=== PATIENT | female | born 1995 | race Caucasian/White ===

== ENCOUNTER 2017-12-07 19:07 | Emergency (ER) | payer OTHER ==
--- NOTE | 2017-12-07 19:16 | PDOC ---
History of Present Illness - General History Source: Patient Exam Limitations: No Limitations - History of Present Illness Initial Comments: 12/07/17 20:11 The patient is a 22 year old female with no significant past medical history who presents to the ED with injury to her left hand. She reports trying to catch a broken piece of glass that was falling and subsequently cut the base of her left ring finger. The patient states that since then she has been unable to flex or bend her ring finger but denies any pain to it. She denies any numbness or tingling to the injury. The patient denies any recent illness, fevers or chills. <Mely Chery - Last Filed: 12/07/17 20:11> <Keven Ulloa - Last Filed: 12/08/17 06:56> - General Chief Complaint: Laceration Stated Complaint: LH 4TH FINGER LAC Past History <Mely Chery - Last Filed: 12/07/17 20:11> - Surgical History Cholecystectomy: Yes - Suicide/Smoking/Psychosocial Hx Smoking History: Never smoked Have you smoked in the past 12 months: No Hx Alcohol Use: No Drug/Substance Use Hx: No Substance Use Type: None <Keven Ulloa - Last Filed: 12/08/17 06:56> - Past Medical History Allergies/Adverse Reactions: Allergies Allergy/AdvReac Type Severity Reaction Status Date / Time No Known Allergies Allergy Verified 07/09/15 12:32 Home Medications: Ambulatory Orders l-Norgest/E.estradiol-E.estrad [Ashlyna 0.15-0.03-0.01 mg Tab] 1 each PO DAILY 12/07/17 Review of Systems - Review of Systems Able to Perform ROS?: Yes Comments:: 12/07/17 20:11 GENERAL/CONSTITUTIONAL: No fever or chills. No weakness. HEAD, EYES, EARS, NOSE AND THROAT: No change in vision. No ear pain or discharge. No sore throat. GASTROINTESTINAL: No nausea, vomiting, diarrhea or constipation. GENITOURINARY: No dysuria, frequency, or change in urination. CARDIOVASCULAR: No chest pain or shortness of breath. RESPIRATORY: No cough, wheezing, or hemoptysis. MUSCULOSKELETAL: Present: inability to bend ring finger No joint or muscle swelling or pain. No neck or back pain. SKIN: Present: cut on left ring finger No rash NEUROLOGIC: No headache, vertigo, loss of consciousness, or change in strength/ sensation. ENDOCRINE: No increased thirst. No abnormal weight change. HEMATOLOGIC/LYMPHATIC: No anemia, easy bleeding, or history of blood clots. ALLERGIC/IMMUNOLOGIC: No hives or skin allergy. All Other Systems: Reviewed and Negative <Mely Chery - Last Filed: 12/07/17 20:11> *Physical Exam - Vital Signs Last Vital Signs Temp Pulse Resp BP Pulse Ox 98.1 F 79 16 150/83 100 12/07/17 19:09 12/07/17 19:09 12/07/17 19:09 12/07/17 19:09 12/07/17 19:09 - Physical Exam Comments: 12/07/17 20:13 GENERAL: Awake, alert, and fully oriented, in no acute distress HEAD: No signs of trauma EXTREMITIES: Normal range of motion, no edema. No clubbing or cyanosis. No cords, erythema, or tenderness NEUROLOGICAL: Normal speech, cranial nerves intact, negative pronator drift, 5/ 5 strength in all 4 extremities, normal sensation to light touch in all 4 extremities, normal gait, normal reflexes and tone SKIN:1 cm horizontal laceration at base of ring finger, no flexor functioning distal to laceration, sensation intact Warm, Dry, normal turgor, no rashes or lesions noted. <Mely Chery - Last Filed: 12/07/17 20:11> Procedures - Laceration/Wound Repair Left Proximal 2nd digit Wound Length: to 2.5 cm Wound Explored: clean, no foreign body present Wound's Depth, Shape: superficial Irrigated w/ Saline: Yes Betadine Prep: No Anesthesia: 2% Lidocaine Amount of Anesthetic (ccs): 1 Wound Repaired With: Sutures Suture Size/Type: 5:0, nylon Sterile Dressing Applied: Yes Splint Applied: Yes <Mely Chery - Last Filed: 12/07/17 20:11> Medical Decision Making - Medical Decision Making 12/08/17 06:54 laceration with flexor tendon dysfunction. lac repaired emergently referred to hand surgery for mgmt of tendon repair <Keven Ulloa - Last Filed: 12/08/17 06:56> *DC/Admit/Observation/Transfer - Attestations Scribe Attestion: 12/07/17 20:18 Documentation prepared by Mely Siracusa, acting as medical records assistant for Keven Ulloa MD. <Mely Chery - Last Filed: 12/07/17 20:11> <Keven Ulloa - Last Filed: 12/08/17 06:56> Diagnosis at time of Disposition: Injury of flexor tendon of left hand Qualifiers: Encounter type: initial encounter Qualified Code(s): S66.802A - Unspecified injury of other specified muscles, fascia and tendons at wrist and hand level, left hand, initial encounter - Discharge Dispostion Disposition: HOME Condition at time of disposition: Stable - Referrals Referrals: Owen Pride MD [Staff Physician] - Call tomorrow - Patient Instructions Printed Discharge Instructions: DI for Laceration Repair - Post Discharge Activity
[2017-12-07 19:19] VITALS: BP 150/83; PULSE 79; TEMP 98.1; BMI 29.9
[2017-12-07] MEDS ORDERED: LIDOCAINE HCL 2% (20ML MULTI-DOSE VIAL) NR ONE (19:21)
== END 2017-12-07 19:50 | disposition home or self-care (01) ==
LOC: FER 19:07
PROC: 0HQGXZZ Repair Left Hand Skin, External Approach (ICD-10-PCS; principal; 2017-12-07)
DX: S66.802A Unspecified injury of other specified muscles, fascia and tendons at wrist and hand level, left hand, initial encounter (principal); S61.215A Laceration without foreign body of left ring finger without damage to nail, initial encounter; W25.XXXA Contact with sharp glass, initial encounter; Y93.89 Activity, other specified; Y92.9 Unspecified place or not applicable
CPT/HCPCS: 99281-25

== ENCOUNTER 2019-03-26 15:23 | Emergency (ER) | payer OTHER ==
[2019-03-26 15:52] VITALS: BP 155/90; PULSE 84; TEMP 98.3; BMI 34.9
--- NOTE | 2019-03-26 17:13 | PDOC ---
Documentation entered by Tammy Barcenas SCRIBE, acting as scribe for Brock Hinkle MD. Brock Hinkle MD: This documentation has been prepared by the Narinder schumacher Collisia, SCRIBE, under my direction and personally reviewed by me in its entirety. I confirm that the documentation accurately reflects all work, treatment, procedures, and medical decision making performed by me. History of Present Illness - General Chief Complaint: Palpitations Stated Complaint: CRAMP OF CHEST AND BACK Time Seen by Provider: 03/26/19 15:25 History Source: Patient Exam Limitations: No Limitations - History of Present Illness Initial Comments: 03/26/19 16:48 The patient is a 23 year old female with no significant past medical history who presents to the emergency department with heart palpitations since earlier today. The patient states that she was at home at rest when she began to experience a sudden onset of heart palpitations. The patient states that she thought she was having an [place]. he reports some associated back pain as well as feeling as if her sternum was about to crack. The patient endorses a heart rate of 92bpm (normally 62bpm). She states that she had 2 episodes of this palpitations 1 at 12pm associated with lightheadedness and the second at 3 pm. She states that her episodes lasted about 20 minutes. 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 She denies any shortness of breath, chills, or weakness. She denies any drug, alcohol use or smoking. The patient endorses a family history of stroke (cousin at age 30), hypertension(mother), bypass (father), the sudden of brother at age 17. She denies any fever chills, nausea, vomiting, diarrhea, constipation or urinary symptoms. The patient denies any other complaints. Past History - Past Medical History Allergies/Adverse Reactions: Allergies Allergy/AdvReac Type Severity Reaction Status Date / Time No Known Allergies Allergy Verified 03/26/19 15:25 Home Medications: Ambulatory Orders l-Norgest/E.estradiol-E.estrad [Ashlyna 0.15-0.03-0.01 mg Tab] 1 each PO DAILY 12/07/17 COPD: No - Surgical History Cholecystectomy: Yes - Immunization History Immunization Up to Date: Yes - Suicide/Smoking/Psychosocial Hx Smoking History: Never smoked Have you smoked in the past 12 months: No Hx Alcohol Use: No Drug/Substance Use Hx: No Substance Use Type: None Review of Systems - Review of Systems Able to Perform ROS?: Yes Comments:: 03/26/19 17:11 GENERAL/CONSTITUTIONAL: No fever or chills. No weakness. HEAD, EYES, EARS, NOSE AND THROAT: No change in vision. No ear pain or discharge. No sore throat. CARDIOVASCULAR: (+)heart palpitations. No shortness of breath. RESPIRATORY: No cough, wheezing, or hemoptysis. GASTROINTESTINAL: No nausea, vomiting, diarrhea or constipation. GENITOURINARY: No dysuria, frequency, or change in urination. MUSCULOSKELETAL: No joint or muscle swelling or pain. No neck or back pain. SKIN: No rash NEUROLOGIC: (+)lightheaded. No headache, vertigo, loss of consciousness, or change in strength/sensation. ENDOCRINE: No increased thirst. No abnormal weight change. HEMATOLOGIC/LYMPHATIC: No anemia, easy bleeding, or history of blood clots. ALLERGIC/IMMUNOLOGIC: No hives or skin allergy. *Physical Exam - Vital Signs Last Vital Signs Temp Pulse Resp BP Pulse Ox 98.3 F 84 16 155/90 100 03/26/19 15:25 03/26/19 15:25 03/26/19 15:25 03/26/19 15:25 03/26/19 15:25 - Physical Exam Comments: 03/26/19 17:11 GENERAL: Awake, alert, and fully oriented, in no acute distress HEAD: No signs of trauma EYES: PERRLA, EOMI, sclera anicteric, conjunctiva clear ENT: Auricles normal inspection, hearing grossly normal, nares patent, oropharynx clear without exudates. Moist mucosa NECK: Normal ROM, supple, no lymphadenopathy, JVD, or masses LUNGS: Breath sounds equal, clear to auscultation bilaterally. No wheezes, and no crackles HEART: Regular rate and rhythm, normal S1 and S2, no murmurs, rubs or gallops ABDOMEN: Soft, nontender, normoactive bowel sounds. No guarding, no rebound. No masses EXTREMITIES: Normal range of motion, no edema. No clubbing or cyanosis. No cords, erythema, or tenderness NEUROLOGICAL: Cranial nerves II through XII grossly intact. Normal speech, normal gait SKIN: Warm, Dry, normal turgor, no rashes or lesions noted. Heart Score/ECG Review #1 ECG reviewed & interpreted by me at: 16:00 03/26/19 17:13 NSR 73, no std/kenn, normal axis, normal intervals, QTC 447 msec, no brugada, no HOCM, no WPW ED Treatment Course - LABORATORY CBC & Chemistry Diagram: 03/26/19 17:03 03/26/19 17:03 - ADDITIONAL ORDERS Additional order review: Laboratory Results 03/26/19 03/26/19 17:03 17:03 Sodium 138 Potassium 3.7 Chloride 107 Carbon Dioxide 24 Anion Gap 7 L BUN 10.0 Creatinine 0.9 Est GFR (CKD-EPI)AfAm 105.19 Est GFR (CKD-EPI)NonAf 90.76 Random Glucose 88 Calcium 9.3 Total Bilirubin 0.7 AST 22 ALT 16 Alkaline Phosphatase 54 Troponin I < 0.03 Total Protein 7.1 Albumin 3.7 03/26/19 17:03 RBC 5.62 H MCV 81.9 MCHC 32.7 RDW 13.1 MPV 8.8 Neutrophils % 66.7 Lymphocytes % 26.4 Monocytes % 3.6 L Eosinophils % 2.6 Basophils % 0.7 - RADIOLOGY Radiology Studies Ordered: Category Date Time Status CHEST PA & LAT [RAD] Stat Radiology 03/26/19 17:09 Ordered Medical Decision Making - Medical Decision Making 03/26/19 17:13 A portion of this note was documented by scribe services under my direction. I have reviewed the details of the note, within reason, and agree with the documentation with the following case summary and management plan written by me. Patient treated in the ED. Nursing notes are reviewed and incorporated into the medical decision-making. Vital signs reviewed. Peripheral IV access obtained by the nurse, laboratory studies are drawn and sent, reviewed and interpreted by myself. Vital Signs Temp Pulse Resp BP Pulse Ox 98.3 F 84 16 155/90 100 03/26/19 15:25 03/26/19 15:25 03/26/19 15:25 03/26/19 15:25 03/26/19 15:25 23-year-old female patient with no past medical history presents with palpitations with 2 discrete episodes. She reports that she recently moved back from [place] to [place]. She currently has no primary care physician. Patient stated that she is doing nothing particular when she felt 20 minutes a rapid palpitations with lightheadedness and chest cramping. Denies shortness of breath. Denies recent illnesses, fevers, chills, cough. Patient is taking control pills but does not have any other pulmonary embolism risk factors. Patient denies any unilateral calf pain or swelling. Patient states she had 2 separate episodes and became anxious and came to the ER. Patient denies any symptoms now. She reports that she would like to go home. However, she does have family history where her older brother had a sudden at the age of 17 with no expendable cause. No other definite the family of that nature. I advised patient that she would benefit for some blood work. EKG doctor's no acute findings. If the blood work demonstrate no acute findings, the patient will need an outpatient Holter monitor and outpatient followup with cardiology. 03/26/19 18:11 CBC, BMP 03/26/19 17:03 03/26/19 17:03 CMP Sodium 138 mmol/L (136-145) 03/26/19 17:03 Potassium 3.7 mmol/L (3.5-5.1) 03/26/19 17:03 Chloride 107 mmol/L (98-107) 03/26/19 17:03 Carbon Dioxide 24 mmol/L (21-32) 03/26/19 17:03 Anion Gap 7 MMOL/L (8-16) L 03/26/19 17:03 BUN 10.0 mg/dl (7-18) 03/26/19 17:03 Creatinine 0.9 mg/dl (0.55-1.3) 03/26/19 17:03 Est GFR (CKD-EPI)AfAm 105.19 03/26/19 17:03 Est GFR (CKD-EPI)NonAf 90.76 03/26/19 17:03 Random Glucose 88 mg/dl (74-106) 03/26/19 17:03 Calcium 9.3 mg/dl (8.5-10) 03/26/19 17:03 Total Bilirubin 0.7 mg/dl (0.2-1) 03/26/19 17:03 AST 22 U/L (15-37) 03/26/19 17:03 ALT 16 U/L (13-61) 03/26/19 17:03 Alkaline Phosphatase 54 U/L (45-117) 03/26/19 17:03 Troponin I < 0.03 ng/ml (0.00-0.05) 03/26/19 17:03 Total Protein 7.1 g/dl (6.4-8.2) 03/26/19 17:03 Albumin 3.7 g/dl (3.4-5.0) 03/26/19 17:03 The patient reports that she like to go home. Her workup is negative here. Thyroid panel is pending but we will call the patient with the results. Patient reports feeling asymptomatic. I advised that given her family history, she would benefit from an internal medicine and cardiology follow-up. She may potentially need a Holter monitor and echocardiogram. Patient verbalizes understanding agrees with the plan. She states that she will go and follow-up. I discussed the physical exam findings, ancillary test results and final diagnoses with the patient. I answered all of the patient's questions. The patient was satisfied with the care received and felt comfortable with the discharge plan and treatment plan. The patient will call their primary care physician within 24 hours to arrange follow-up and will return to the Emergency Department with any new, persistant or worsening symptoms. *DC/Admit/Observation/Transfer Diagnosis at time of Disposition: Palpitations - Discharge Dispostion Disposition: HOME Condition at time of disposition: Good Decision to Admit order: No - Referrals Referrals: Guy Nash MD [Staff Physician] - Hemanth Ni MD [Staff Physician] - - Patient Instructions Printed Discharge Instructions: DI for Palpitations Additional Instructions: Your workup here in the ER is unremarkable. However, we will call back with the thyroid results. At this time, we advise that you should follow up with a primary care physician and a gynecologist given your family history. We have given you referrals at this time. Please call to schedule an appointment. The gynecologist may consider other tests such as a echocardiogram and/or holter monitor. If you notice any worsening of symptoms such as chest pain or feinting, please return to the ER. Otherwise, please drink plenty of water and rest. - Post Discharge Activity
[2019-03-26 17:21] LABS: BASO % 0.7 % (0-2.0); EOS % 2.6 % (0-4.5); HEMOGLOBIN 15.1 GM/dl (10.7-15.3); LYMPH % 26.4 % (8-40); MCH 26.8 pg (25.7-33.7); MCHC 32.7 g/dl (32.0-36.0); MEAN CELL VOLUME 81.9 fl (80-96); MEAN PLT VOLUME 8.8 fl (7.5-11.1); MONO % 3.6 % (3.8-10.2); NEUT % 66.7 % (42.8-82.8); PLATELET COUNT 363 K/MM3 (134-434); RBC 5.62 M/mm3 (3.60-5.2); RDW 13.1 % (11.6-15.6); WHITE BLOOD COUNT 7.3 K/mm3 (4.0-10.8)
[2019-03-26 17:30] LABS: ALBUMIN 3.7 g/dl (3.4-5.0); BILIRUBIN,TOTAL 0.7 mg/dl (0.2-1); CALCIUM 9.3 mg/dl (8.5-10); CREATININE 0.9 mg/dl (0.55-1.3); POTASSIUM 3.7 mmol/L (3.5-5.1); TOT PROT 7.1 g/dl (6.4-8.2)
[2019-03-26] MEDS ORDERED: SODIUM CHLORIDE 1,000 ML IV STA (17:32)
--- NOTE | 2019-03-30 00:13 | EKG ---
Test Reason : Blood Pressure : / mmHG Vent. Rate : 073 BPM Atrial Rate : 073 BPM P-R Int : 126 ms QRS Dur : 080 ms QT Int : 406 ms P-R-T Axes : 031 044 037 degrees QTc Int : 447 ms NORMAL SINUS RHYTHM WITH SINUS ARRHYTHMIA NORMAL ECG NO PREVIOUS ECGS AVAILABLE Confirmed by MD Jason, Jamison ([id number]) on 03/30/2019 12:13:16 AM Referred By: DR VAZQUEZ Confirmed By:Jamison Gomez MD
== END 2019-03-26 18:27 | disposition home or self-care (01) ==
LOC: FER 15:23
PROC: 3E0337Z Introduction of Electrolytic and Water Balance Substance into Peripheral Vein, Percutaneous Approach (ICD-10-PCS; principal; 2019-03-26)
DX: R00.2 Palpitations (principal)
CPT/HCPCS: 36415; 80053; 84443; 84484; 85025; 93005; 99284-25; J7030